=== PATIENT | male | born 1965 | race Asian ===

== ENCOUNTER 2016-05-22 23:22 | Emergency (ER) | payer SELFPAY ==
[2016-05-23 01:38] LABS: Basophils % (Auto) 0.8 % (0.0-1.8); Eosinophils % (Auto) 1.7 % (0.0-4.3); Hematocrit 44.3 % (35.5-45.6); Hemoglobin 14.5 gm/dl (11.8-15.2); Mean Corpuscular HGB Conc 33 % (32-34); Mean Corpuscular Hemoglobin 27 pg (28-32); Mean Corpuscular Volume 82 fl (84-94); Platelet Count 229 K/mm3 (140-440); Red Blood Count 5.37 M/mm3 (3.65-5.03); Red Cell Distribution Width 12.5 % (13.2-15.2); White Blood Count 4.3 K/mm3 (4.5-11.0)
[2016-05-23 02:11] LABS: Alanine Aminotransferase 21 units/L (7-56); Albumin 4.3 g/dL (3.9-5); Albumin/Globulin Ratio 1.3 %; Alkaline Phosphatase 64 units/L (35-129); Anion Gap 16 mmol/L; BUN/Creatinine Ratio 11.25; Bilirubin,Total 0.3 mg/dL (0.1-1.2); Blood Urea Nitrogen 9 mg/dL (9-20); Calcium 9.1 mg/dL (8.4-10.2); Carbon Dioxide 28 mmol/L (22-30); Chloride 95.4 mmol/L (98-107); Glucose 341 mg/dL (75-100); Lipase 72 units/L (13-60); Potassium 4.1 mmol/L (3.6-5.0); Sodium 135 mmol/L (137-145); Total Protein 7.5 g/dL (6.3-8.2)
--- NOTE | 2016-05-23 06:52 | Emergency Department Report ---
ED General Adult HPI - General Chief complaint: Abdominal Pain Stated complaint: ABD PAIN Time Seen by Provider: 05/23/16 06:49 Source: patient Mode of arrival: Ambulatory Limitations: No Limitations - History of Present Illness Initial comments: The patient complains of right lower quadrant/mid quadrant abdominal pain which somewhat radiates to the back. He denies dysuria. He is a type II diabetic with a history of hypertension. He states he thinks he had kidney stones back in the 90s. No intervention was required. He denies any recent fever or chills. He also denies nausea and vomiting. -: days(s) Location: abdomen Radiation: flank Quality: aching Consistency: intermittent Improves with: none Worsens with: none Associated Symptoms: denies other symptoms Treatments Prior to Arrival: none - Related Data Home Medications Medication Instructions Recorded Confirmed Last Taken Lisinopril [Zestril TAB] 10 mg PO QDAY 05/23/16 05/23/16 04/25/16 Metformin HCl [Glucophage] 1,000 mg PO QDAY 05/23/16 05/23/16 04/25/16 Previous Rx's Medication Instructions Recorded Last Taken Type Metformin HCl [Glucophage] 1,000 mg PO BID #60 tablet 05/23/16 Unknown Rx traMADol [Ultram] 50 mg PO Q6HR PRN #14 tablet 05/23/16 Unknown Rx Allergies Allergy/AdvReac Type Severity Reaction Status Date / Time No Known Allergies Allergy Unverified 05/23/16 01:18 ED Review of Systems ROS: Stated complaint: ABD PAIN Other details as noted in HPI Constitutional: denies: chills, fever Eyes: denies: eye pain, eye discharge, vision change ENT: denies: ear pain, throat pain Respiratory: denies: cough, shortness of breath, wheezing Cardiovascular: denies: chest pain, palpitations Endocrine: no symptoms reported Gastrointestinal: abdominal pain. denies: nausea, diarrhea Genitourinary: denies: urgency, dysuria Musculoskeletal: back pain. denies: joint swelling, arthralgia Skin: denies: rash, lesions Neurological: denies: headache, weakness, paresthesias Psychiatric: denies: anxiety, depression Hematological/Lymphatic: denies: easy bleeding, easy bruising ED Past Medical Hx - Past Medical History Hx Hypertension: Yes Hx Diabetes: Yes - Surgical History Past Surgical History?: No - Social History Smoking Status: Never Smoker Substance Use Type: None - Medications Home Medications: Home Medications Medication Instructions Recorded Confirmed Last Taken Type Lisinopril [Zestril TAB] 10 mg PO QDAY 05/23/16 05/23/16 04/25/16 History Metformin HCl [Glucophage] 1,000 mg PO BID #60 tablet 05/23/16 Unknown Rx Metformin HCl [Glucophage] 1,000 mg PO QDAY 05/23/16 05/23/16 04/25/16 History traMADol [Ultram] 50 mg PO Q6HR PRN #14 tablet 05/23/16 Unknown Rx ED Physical Exam - General Limitations: No Limitations General appearance: alert, in no apparent distress - Head Head exam: Present: atraumatic, normocephalic - Eye Eye exam: Present: normal appearance, PERRL, EOMI. Absent: scleral icterus - ENT ENT exam: Present: mucous membranes moist - Neck Neck exam: Present: normal inspection - Respiratory Respiratory exam: Present: normal lung sounds bilaterally. Absent: respiratory distress - Cardiovascular Cardiovascular Exam: Present: regular rate, normal rhythm. Absent: systolic murmur, diastolic murmur, rubs, gallop - GI/Abdominal GI/Abdominal exam: Present: soft, normal bowel sounds. Absent: distended, tenderness, guarding, rebound, rigid, organomegaly, mass, bruit, pulsatile mass , hernia - Rectal Rectal exam: Present: deferred - Extremities Exam Extremities exam: Present: normal inspection - Back Exam Back exam: Present: normal inspection - Neurological Exam Neurological exam: Present: alert, oriented X3, CN II-XII intact. Absent: motor sensory deficit - Psychiatric Psychiatric exam: Present: normal affect, normal mood - Skin Skin exam: Present: warm, dry, intact, normal color. Absent: rash ED Course Vital Signs 05/23/16 05/23/16 05/23/16 01:13 06:02 06:31 Temperature 97.4 F L 97.7 F Pulse Rate 79 84 74 Respiratory 20 18 15 Rate Blood Pressure 160/111 Blood Pressure 169/102 [Left] O2 Sat by Pulse 97 100 Oximetry 05/23/16 05/23/16 05/23/16 06:32 06:34 06:36 Temperature Pulse Rate 71 75 72 Respiratory 14 12 15 Rate Blood Pressure 149/96 149/96 149/96 Blood Pressure [Left] O2 Sat by Pulse Oximetry 05/23/16 05/23/16 05/23/16 06:38 06:40 06:42 Temperature Pulse Rate 71 72 70 Respiratory 17 12 13 Rate Blood Pressure 149/96 149/96 149/96 Blood Pressure [Left] O2 Sat by Pulse Oximetry 05/23/16 05/23/16 05/23/16 06:44 06:46 06:48 Temperature Pulse Rate 78 71 68 Respiratory 17 12 18 Rate Blood Pressure 149/96 149/96 149/96 Blood Pressure [Left] O2 Sat by Pulse Oximetry 05/23/16 05/23/16 05/23/16 06:50 06:52 06:54 Temperature Pulse Rate 71 68 76 Respiratory 17 12 19 Rate Blood Pressure 149/96 149/96 149/96 Blood Pressure [Left] O2 Sat by Pulse Oximetry 05/23/16 05/23/16 05/23/16 06:56 06:58 07:00 Temperature Pulse Rate 76 83 82 Respiratory 14 17 13 Rate Blood Pressure 149/96 149/96 149/96 Blood Pressure [Left] O2 Sat by Pulse Oximetry 05/23/16 05/23/16 05/23/16 07:01 07:02 07:04 Temperature Pulse Rate 74 70 70 Respiratory 18 17 17 Rate Blood Pressure 154/95 154/95 154/95 Blood Pressure [Left] O2 Sat by Pulse Oximetry 05/23/16 05/23/16 05/23/16 07:06 07:08 07:10 Temperature Pulse Rate 72 71 68 Respiratory 15 15 15 Rate Blood Pressure 154/95 154/95 149/96 Blood Pressure [Left] O2 Sat by Pulse Oximetry 05/23/16 05/23/16 05/23/16 07:38 07:40 07:42 Temperature Pulse Rate 72 67 76 Respiratory 14 12 14 Rate Blood Pressure 149/96 149/96 149/96 Blood Pressure [Left] O2 Sat by Pulse Oximetry 05/23/16 05/23/16 05/23/16 07:44 07:46 07:48 Temperature Pulse Rate 72 73 71 Respiratory 15 13 16 Rate Blood Pressure 149/96 149/96 149/96 Blood Pressure [Left] O2 Sat by Pulse Oximetry 05/23/16 05/23/16 05/23/16 07:50 07:52 07:54 Temperature Pulse Rate 68 70 69 Respiratory 13 12 11 L Rate Blood Pressure 149/96 149/96 149/96 Blood Pressure [Left] O2 Sat by Pulse Oximetry 05/23/16 05/23/16 05/23/16 07:56 07:58 08:00 Temperature Pulse Rate 70 75 71 Respiratory 12 12 15 Rate Blood Pressure 149/96 149/96 163/98 Blood Pressure [Left] O2 Sat by Pulse Oximetry 05/23/16 05/23/16 05/23/16 08:02 08:04 08:06 Temperature Pulse Rate 74 74 71 Respiratory 16 14 15 Rate Blood Pressure 163/98 163/98 163/98 Blood Pressure [Left] O2 Sat by Pulse Oximetry 05/23/16 05/23/16 05/23/16 08:08 08:10 08:11 Temperature Pulse Rate 71 73 Respiratory 13 13 14 Rate Blood Pressure 163/98 163/98 Blood Pressure [Left] O2 Sat by Pulse Oximetry 05/23/16 05/23/16 05/23/16 08:12 08:14 08:16 Temperature Pulse Rate 73 71 73 Respiratory 12 12 12 Rate Blood Pressure 154/95 154/95 154/95 Blood Pressure [Left] O2 Sat by Pulse Oximetry 05/23/16 05/23/16 05/23/16 08:18 08:20 08:22 Temperature Pulse Rate 71 75 73 Respiratory 13 13 12 Rate Blood Pressure 154/95 154/95 154/95 Blood Pressure [Left] O2 Sat by Pulse Oximetry 05/23/16 05/23/16 08:24 08:26 Temperature Pulse Rate 73 Respiratory 12 14 Rate Blood Pressure 154/95 Blood Pressure [Left] O2 Sat by Pulse 100 Oximetry - Reevaluation(s) Reevaluation #1: Symptoms improved after Toradol. Patient resting comfortably. Findings have been reviewed. Additionally was given IV fluids and insulin. 05/23/16 09:49 05/23/16 09:50 ED Medical Decision Making - Lab Data Result diagrams: 05/23/16 01:28 05/23/16 01:28 Laboratory Results - last 24 hr 05/23/16 05/23/16 01:28 01:28 WBC 4.3 L RBC 5.37 H Hgb 14.5 Hct 44.3 MCV 82 L MCH 27 L MCHC 33 RDW 12.5 L Plt Count 229 Lymph % (Auto) 46.7 H [place] % (Auto) 12.2 H Eos % (Auto) 1.7 Baso % (Auto) 0.8 Lymph # 2.0 [place] # 0.5 Eos # 0.1 Baso # 0.0 Seg Neutrophils % 38.6 L Seg Neutrophils # 1.7 L Sodium 135 L Potassium 4.1 Chloride 95.4 L Carbon Dioxide 28 Anion Gap 16 BUN 9 Creatinine 0.8 Estimated GFR > 60 BUN/Creatinine Ratio 11.25 Glucose 341 H Calcium 9.1 Total Bilirubin 0.3 AST 17 ALT 21 Alkaline Phosphatase 64 Total Protein 7.5 Albumin 4.3 Albumin/Globulin Ratio 1.3 Lipase 72 H - Radiology Data Radiology results: report reviewed interpreted by me: 2 right calyceal stones associated with double ureter and no obstruction Critical care attestation.: If time is entered above; I have spent that time in minutes in the direct care of this critically ill patient, excluding procedure time. 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 After only taking metformin once a day and would recommend taking it twice. Her giving her prescription for additional metformin as well as something for pain and a referral to the urology doctor. Prescriptions: Metformin HCl [Glucophage] 1,000 mg PO BID #60 tablet traMADol [Ultram] 50 mg PO Q6HR PRN #14 tablet PRN Reason: Pain Referrals: PRIMARY CARE, [Primary Care Provider] - 3-5 Days [facility] [Provider Group] - 3-5 Days [facility] [Provider Group] - 2-3 Days Time of Disposition: 09:53
[2016-05-23] MEDS ORDERED: NACL 0.9% 1000 ML 1,000 ML IV ONE (06:58)
[2016-05-23] MEDS ORDERED: TORADOL IV ONE (06:58)
--- NOTE | 2016-05-23 07:33 | Cat Scan Report ---
CT OF THE ABDOMEN AND PELVIS WITHOUT CONTRAST HISTORY: Right flank pain. TECHNIQUE: Helical CT without contrast. Sagittal and coronal reformatted images. FINDINGS: The kidneys are normal size, contour and position. 2 calyceal stones are identified in the superior right kidney measuring up to 2 mm. No left renal stones. No cystic disease, mass, hydronephrosis or perinephric fluid. There appear to be 2 ureters on the right side which fuse just before the right UVJ. Single left ureter. No ureteral stones. Bladder and prostate gland are unremarkable. Normal liver, biliary system, pancreas, spleen, adrenal glands, aorta, bowel loops and appendix. No evidence for ascites, free air or acute inflammation or adenopathy. The lung bases are clear. Normal heart size. No suspicious bony lesion. Moderate to severe degenerative disc disease at L5-S1 is noted. IMPRESSION: Nonobstructing right nephrolithiasis as described above.
[2016-05-23 07:44] LABS: Bilirubin,Urine NEG (Negative); Blood,Urine NEG (Negative); Ketones,Urine NEG (Negative); Leukocyte Esterase,Urine NEG (Negative); Nitrite,Urine NEG (Negative); Protein,Urine <15 mg/dL mg/dL (Negative); Urobilinogen,Urine < 2.0 mg/dL (<2.0); WBC,Urine < 1.0 /HPF (0.0-6.0)
[2016-05-23 10:09] VITALS: BP 143/96
== END 2016-05-23 10:06 | disposition home or self-care (01) ==
LOC: ED 23:22
DX: N20.0 Calculus of kidney (principal); I10 Essential (primary) hypertension; E11.65 Type 2 diabetes mellitus with hyperglycemia
CPT/HCPCS: 36415; 74176; 80053; 81001; 83690; 85025; 96361; 96374; 96375; 99284; J1885; J7030; J1815